=== PATIENT | female | born 1985 | race Two or more races ===

== ENCOUNTER 2017-06-26 17:38 | Emergency (ER) | payer OTHER ==
[~2017-06-26] VITALS: Ht 162.6 cm; Wt 68.0 kg
[2017-06-26 17:52] VITALS: BP 116/79
== END 2017-06-26 20:35 | disposition left against medical advice (07) ==
LOC: ER 17:45
DX: M25.561 Pain in right knee (principal); Z53.21 Procedure and treatment not carried out due to patient leaving prior to being seen by health care provider
CPT/HCPCS: 73562